=== PATIENT | male | born 1970 | race Caucasian/White ===

== ENCOUNTER 2016-08-13 06:45 | Emergency (ER) | payer MEDICARE, MEDICAID ==
[2016-08-13 09:24] LABS: BASOPHIL % 0.3 % (0-2); PLATELET COUNT 160 x10^3mcL (130-400); RED CELL DISTRIBUTION WIDTH 12.9 % (11.5-14.5)
[2016-08-13 09:36] LABS: CALCIUM 8.6 mg/dL (8.5-10.1); CARBON DIOXIDE 29.9 mmol/L (21-32); CHLORIDE SERUM 111 mmol/L (98-107); CREATININE SERUM 0.7 mg/dL (0.7-1.3); GFR1 > 60 mL/min; GLUCOSE SERUM 77 mg/dL (74-106); POTASSIUM SERUM 3.3 mmol/L (3.5-5.1); SODIUM SERUM 147 mmol/L (136-145)
[2016-08-13 09:41] LABS: ALBUMIN 3.5 g/dL (3.4-5.0); ALKALINE PHOSPHATASE 54 U/L (46-116); ALT/SGPT 52 U/L (16-63); AST/SGOT 48 U/L (15-37); BILIRUBIN TOTAL 0.6 mg/dL (0.20-1.00)
[2016-08-13 09:48] LABS: TOTAL PROTEIN, SERUM 5.4 g/dL (6.4-8.2)
[2016-08-13 12:43] LABS: UA SPECIFIC GRAVITY 1.015 (1.005-1.035); microscopic required? YES; urine erythrocyte NEGATIVE (NEGATIVE)
[2016-08-13 12:44] LABS: AMPHETAMINE QUAL UR NONE DETECTED (NEG <=1000)
[2016-08-13 14:43] VITALS: BP 126/63
== END 2016-08-13 14:43 | disposition home or self-care (01) ==
LOC: ED 06:45
PROVIDERS: Specialist
DX: F29 Unspecified psychosis not due to a substance or known physiological condition (principal); E87.6 Hypokalemia; F31.9 Bipolar disorder, unspecified; F20.9 Schizophrenia, unspecified
CPT/HCPCS: 80307